=== PATIENT | female | born 1975 | race Caucasian/White ===

== ENCOUNTER → 2018-03-14 07:54 | Outpatient (CLI) | payer BC, SELFPAY ==
--- NOTE | 2018-03-14 | DI.RAD.S_ITS ---
PROCEDURE: XR HIP W PEL IF DONE BILAT 2V INDICATIONS: BILATERAL HIP PAIN TECHNIQUE: AP pelvis with lateral view(s) of the left and right hip(s). COMPARISON: None. FINDINGS: Bones: No fractures or dislocations. Pelvic ring appears intact. No suspicious bony lesions. Bilateral mild hip joint degeneration. Lower lumbar spine disc degeneration. There is a borderline right and slightly abnormal left center edge angles raising the possibility of mild bilateral hip dysplasia. Suboptimal evaluation given pelvic tilt. Soft tissues: The visualized bowel gas pattern is normal. No suspicious soft tissue calcifications. IMPRESSION: Mild bilateral hip degeneration. Borderline dysplastic hip appearance, left greater than right, although the appearance could be accentuated due to pelvic tilt. Recommend clinical correlation. Dictated by: Shimon Tiwari M.D. on 03/14/2018 at 9:00 Approved by: Shimon Tiwair M.D. on 03/14/2018 at 9:07
== END ==
PROVIDERS: Visit Provider Chiropractor
DX: M25.552 Pain in left hip (principal); M25.551 Pain in right hip; M16.0 Bilateral primary osteoarthritis of hip
CPT/HCPCS: 73521

== ENCOUNTER → 2018-12-02 08:37 | Outpatient (CLI) | payer OTHER, SELFPAY ==
--- NOTE | 2018-12-02 | DI.CT.S_ITS ---
PROCEDURE: CT ABDOMEN PELVIS W CON INDICATIONS: ABDOMINAL BLOATING TECHNIQUE: After the administration of oral and intravenous contrast, 5 mm thick sections acquired from the diaphragms to the symphysis. 5 mm thick coronal and sagittal reformats were performed. For radiation dose reduction, the following was used: automated exposure control, adjustment of mA and/or kV according to patient size. COMPARISON: None. FINDINGS: Image quality: Excellent. ABDOMEN: Lung bases: Lung bases are clear. Heart size is normal. Solid organs: Liver is normal in size and enhancement. Gallbladder appears normal. Biliary system is non-dilated. Pancreas enhances normally. Spleen is normal in size and enhancement. No adrenal nodules. Kidneys are normal in size and enhancement, without hydronephrosis. Peritoneum and bowel: Stomach, small bowel, and colon loops are normal in caliber and wall thickness. No free fluid or air. There is generalize colonic obstipation through the abdomen and pelvis, on the right in the left. Nodes and vessels: No retroperitoneal or mesenteric adenopathy. Aorta and inferior vena cava are normal in caliber. Miscellaneous: No ventral hernias. PELVIS: Genitourinary: Bladder wall thickness is normal. Miscellaneous: No inguinal hernias or adenopathy. Bones: No suspicious bony lesions. No vertebral body compression fractures. IMPRESSION: Generalize colonic obstipation, no ascites or peritoneal masses are found. Dictated by: Rocky Che M.D. on 12/02/2018 at 14:11 Approved by: Rocky Che M.D. on 12/02/2018 at 14:13
== END ==
PROVIDERS: PCP Nurse Practitioner Family; Visit Provider Nurse Practitioner Family
DX: R14.0 Abdominal distension (gaseous) (principal); K59.09 Other constipation
CPT/HCPCS: 74177; Q9967

== ENCOUNTER 2022-05-17 11:28 | Day surgery (SDC) | payer OTHER, SELFPAY ==
[2022-05-17] VITALS (7 sets, daily range): BP systolic 112–130; BP diastolic 66–83; PULSE 77–103; RESP 16–17; TEMP 36.3–36.4; O2SAT 97–100; BMI 22.6
--- NOTE | 2022-05-17 | PATH_ITS ---
[facility] Accession Number: [id number] . 01 Material submitted: . PART A: stomach - ANTRUM NODULE PART B: gastrointestinal site - GASTRIC POLYPS . 01 Diagnosis: A. Stomach, Nodule, Biopsy: Reactive gastropathy with intestinal metaplasia. Negative for Helicobacter by immunohistochemistry. Negative for dysplasia and malignancy. . B. Stomach, Polyps, Biopsies: Fundic gland polyps. No evidence of Helicobacter organisms on H/E stain. Negative for intestinal metaplasia. Negative for dysplasia and malignancy. MRV 05/22/2022 1538 Local . 01 Electronically signed: . Ana Montoya MD, Pathologist NPI- [id number] . 01 Gross description: . Part A: ANTRUM NODULE: Received in formalin is 1 fragment(s) of duran, soft tissue measuring 0.3 x 0.2 x 0.1 cm submitted entirely in 1 cassette(s) Part B: GASTRIC POLYPS: Received in formalin are multiple fragment(s) of duran, soft tissue measuring 2.0 x 0.3 x 0.1 cm in aggregate submitted entirely in 1 cassette(s) /CPE 05/18/2022 0628 Local . 01 Microscopic: . A. An immunohistochemical stain was performed to evaluate for Helicobacter organisms and is negative. The control stain showed appropriate reactivity. . * This test was developed and its performance characteristics determined by [employer]. It has not been cleared or approved by the U.S. Food and Drug Administration. The FDA has determined that such clearance or approval is not necessary. This test is used for clinical purposes. It should not be regarded as investigational or for research. . 01 Pathologist provided ICD-10: R14.0, R10.13, K31.7 . 01 CPT . 476212, 109970, D52631 Specimen Comment: A courtesy copy of this report has been sent to [phone], [phone] Specimen Comment: [id number] [facility]formed at: [facility] [address] [place] [id number] MD Yogesh Fox MD Phone: [phone]
--- NOTE | 2022-05-17 12:22 | PM.HP.1 ---
History of Present Illness History of Present Illness Date Patient Seen: 05/17/22 Time Patient Seen: 12:22 Chief complaint: SDC Narrative: I reviewed the recent office note. She cancel the colonoscopy over fears of low blood pressure with the prep. She is seeking evaluation for left upper quadrant pain and new symptoms of reflux. She is a history of fairly heavy NSAID use over the years. None recently. Meds Home Medications and Allergies Home Medications Medication Instructions Recorded Confirmed Type Flonase 50 mcg intranasal BID 05/17/22 05/17/22 History Zyrtec 10 mg 05/17/22 History alpha lipoic acid 200 mg PO DAILY 05/17/22 05/17/22 History amitriptyline 30 mg DAILY 05/17/22 05/17/22 History azelastine 137 mcg DAILY 05/17/22 05/17/22 History baclofen 10 mg PO DAILY 05/17/22 05/17/22 History magnesium 200 mg PO DAILY 05/17/22 05/17/22 History sodium hyaluronate 120 mg PO DAILY 05/17/22 05/17/22 History Allergies Allergy/AdvReac Type Severity Reaction Status Date / Time cimetidine [From Tagamet] AdvReac Verified 05/17/22 12:02 famotidine AdvReac Verified 05/17/22 12:02 omeprazole AdvReac Verified 05/17/22 12:02 Review of Systems Review of Systems ROS: Yes All systems reviewed with the patient and are negative except as otherwise documented Exam Const General: cooperative HENMT Head: normal to inspection Eyes General: appearance normal, both eyes and all related structures Neck Neck: normal visual inspection Chest Chest: normal inspection of the chest Resp Effort & Inspection: normal respiratory effort Cardio Rate: regular rate GI Inspection: normal to inspection Skin General: no rashes or lesions noted Neuro General: patient alert and patient awake Extrem General: normal to inspection and no pedal edema Psych Appearance: grossly normal Assessment & Plan Assessment & Plan narrative: 46-year-old female with left upper quadrant pain refractory reflux symptoms. EGD is pursued today. Time Spent With Patient Critical Care time: I spent a total of [] minutes of critical care time on this patient's care today; this time is exclusive of procedural time.
[2022-05-17] MEDS: LACTATED RINGERS 1,000 ML 42 ML IV (12:26)
--- NOTE | 2022-05-17 12:57 | PM.PREOP ---
Pre-operative Note COVID-19 COVID-19 status: Negative Result date/Date tested (Pos, Neg/Pending): 05/16/22 Criteria for continued procedure: Possibility delay results in more complex future surgery or treatment Interval Note History & Physical reviewed/Exam performed by Physician: Yes Changes to H&P: No ASA Class (for procedural sedation): II
--- NOTE | 2022-05-17 13:32 | PM.OP.EGD ---
Operative Date/Time/Diagnoses Date of procedure: 05/17/22 Time of procedure: 13:32 Pre-op diagnosis: Left upper quadrant pain reflux Post-op diagnosis: same Procedure & Clinicians Study performed: EGD with biopsies Same procedure as scheduled: Yes Indications: Left upper quadrant pain reflux Surgeon: Dante Guillermo Procedure Notes SCOAP/Timeout: Done Procedure in detail: After the risks and benefits were explained, written and verbal informed consent was obtained. The patient was brought into the procedure room and placed into the left lateral decubitus position. Please see anesthesia notes for sedation details. The scope was introduced into the mouth through the bite block and advanced under direct visualization to the 2nd portion of the duodenum. The scope was slowly withdrawn carefully examining the mucosa for any defects or lesions. Retroflexed views were accomplished in the stomach. The stomach was decompressed, the scope was then removed from the patient who tolerated the procedure well. Sedation minutes: 13 Complications: none Impression: 1. Duodenum: No significant pathology identified from the bulb through to the 2nd portion. 2. Stomach: No ulcers. No gastric outlet obstruction. There was a small subtle mucosal nodule in the pre-pyloric region of the antrum and this was addressed with cold forceps for histopathology. There were numerous sessile small polyps seen throughout the body and fundus. Several of these were biopsied for histopathologic analysis. Retroflexed views of the LES were otherwise unremarkable. 3. Esophagus: The squamocolumnar junction correlated with the top of the gastric folds. GE junction was at 40 cm from the incisors. No evidence of any esophagitis no strictures no mass lesions. No pathology appreciated throughout the esophagus. Endoscopic diagnosis 1. Mild gastropathy with pre-pyloric nodule. 2. Small gastric polyps Post-procedure Plan for aftercare: 1. Await histopathology. 2. Try to avoid NSAIDs 3 if Helicobacter is identified, it will need to be eradicated with standard triple therapy recognizing the patient has significant allergies that may make therapy more challenging.. Disposition: PACU
== END 2022-05-17 14:30 | disposition home or self-care (01) ==
PROVIDERS: PCP Nurse Practitioner Family; Referring Provider Internal Medicine Gastroenterology; Visit Provider Internal Medicine Gastroenterology
PROC: 0DJ08ZZ Inspection of Upper Intestinal Tract, Via Natural or Artificial Opening Endoscopic (ICD-10-PCS; CPT 43235; principal; 2022-05-17 13:30)
DX: R10.12 Left upper quadrant pain (principal); K31.9 Disease of stomach and duodenum, unspecified; K31.7 Polyp of stomach and duodenum
CPT/HCPCS: 43239; J2704; J3010

== ENCOUNTER 2023-02-21 07:36 | Day surgery (SDC) | payer OTHER, SELFPAY ==
--- NOTE | 2023-02-21 | PATH_ITS ---
[facility] Accession Number: [id number] No. of containers..06 Tissue . 01 Material submitted: . PART A: stomach - ANTRUM PART B: stomach - INCISURA PART C: stomach - ANTRAL NODULE PART D: stomach - GREATER CURVATURE PART E: stomach - LESS CURVATURE PART F: stomach - FUNDUS . 01 Diagnosis: A. STOMACH, ANTRUM, BIOPSY: ANTRAL GASTRIC MUCOSA WITH MILD CHRONIC AND FOCAL ACTIVE GASTRITIS, AND REACTIVE GASTROPATHY. NO H. PYLORI LIKE ORGANISMS IDENTIFIED (BY THE H/E AND IMMUNOHISTOCHEMICAL STAINED SLIDE SECTIONS). NO INTESTINAL METAPLASIA, DYSPLASIA OR MALIGNANCY IDENTIFIED. SEE COMMENT: -- B. STOMACH, INCISURA, BIOPSY: GASTRIC MUCOSA WITH MILD CHRONIC GASTRITIS. NO H. PYLORI LIKE ORGANISMS IDENTIFIED (BY THE H/E-STAINED SLIDE SECTIONS). NO INTESTINAL METAPLASIA, DYSPLASIA OR MALIGNANCY IDENTIFIED. -- C. STOMACH, ANTRAL NODULE, BIOPSY: ANTRAL GASTRIC MUCOSA WITH MILD FOCAL CHRONIC GASTRITIS, AND MILD REACTIVE GASTROPATHY. NO H. PYLORI LIKE ORGANISMS IDENTIFIED (BY THE H/E AND IMMUNOHISTOCHEMICAL STAINED SLIDE SECTIONS). NO INTESTINAL METAPLASIA, DYSPLASIA OR MALIGNANCY IDENTIFIED. SEE COMMENT: -- D. STOMACH, GREATER CURVATURE, BIOPSY: OXYNTIC GASTRIC MUCOSA WITH NO HISTOLOGIC ABNORMALITIES. NO H. PYLORI LIKE ORGANISMS IDENTIFIED (ON THE H/E-STAINED SECTIONS). NEGATIVE FOR GASTRITIS, INTESTINAL METAPLASIA, DYSPLASIA OR MALIGNANCY. -- E. STOMACH, LESSER CURVATURE, BIOPSY: OXYNTIC GASTRIC MUCOSA WITH MILD CHRONIC GASTRITIS. NO H. PYLORI LIKE ORGANISMS IDENTIFIED (ON THE H/E-STAINED SECTIONS). NEGATIVE FOR INTESTINAL METAPLASIA, DYSPLASIA OR MALIGNANCY. -- F. STOMACH, FUNDUS, BIOPSY: OXYNTIC GASTRIC MUCOSA WITH MILD CHRONIC GASTRITIS. NO H. PYLORI LIKE ORGANISMS IDENTIFIED (BY THE H/E AND IMMUNOHISTOCHEMICAL STAINED SLIDE SECTIONS). NO INTESTINAL METAPLASIA, DYSPLASIA OR MALIGNANCY IDENTIFIED. SEE COMMENT: --- COMMENT: H. PYLORI IMMUNOHISTOCHEMICAL STAIN WAS PERFORMED ON PARTS A, C, AND F AND ARE NEGATIVE. TECHNICAL NOTE: THE IMMUNOHISTOCHEMICAL STAINS REPORTED WERE PERFORMED AT [facility] ([address], [facility] [address]). THEY WERE DEVELOPED AND THEIR PERFORMANCE CHARACTERISTICS DETERMINED BY [employer] THEY HAVE NOT BEEN CLEARED OR APPROVED BY THE [place] FOOD AND DRUG ADMINISTRATION, ALTHOUGH SUCH APPROVAL IS NOT REQUIRED FOR ANALYTE-SPECIFIC REAGENTS OF THIS TYPE. . TXN 02/26/2023 1353 Local . 01 Electronically signed: . Liam Aj MD, Pathologist NPI- [id number] . 01 Gross description: . Part A: ANTRUM: Received in formalin is 2 fragment(s) of duran, soft tissue measuring 0.3 x 0.3 x 0.2 cm to 0.3 x 0.2 x 0.2 cm submitted entirely in 1 cassette(s) Part B: INCISURA: Received in formalin is 2 fragment(s) of duran, soft tissue measuring 0.3 x 0.3 x 0.2 cm to 0.3 x 0.2 x 0.2 cm submitted entirely in 1 cassette(s) Part C: ANTRAL NODULE: Received in formalin is 1 fragment(s) of duran, soft tissue measuring 0.5 x 0.3 x 0.2 cm submitted entirely in 1 cassette(s) Part D: GREATER CURVATURE: Received in formalin is 2 fragment(s) of duran, soft tissue measuring 0.4 x 0.2 x 0.1 cm to 0.2 x 0.2 x 0.1 cm submitted entirely in 1 cassette(s) Part E: LESS CURVATURE: Received in formalin is 2 fragment(s) of duran, soft tissue measuring 0.4 x 0.2 x 0.1 cm to 0.2 x 0.1 x 0.1 cm submitted entirely in 1 cassette(s) Part F: FUNDUS: Received in formalin is 1 fragment(s) of duran, soft tissue measuring 0.4 x 0.2 x 0.2 cm submitted entirely in 1 cassette(s) /AAY 02/22/2023 0607 Local . 01 Pathologist provided ICD-10: K31.89 . 01 CPT . 267160, 108890, 075975, 090717, 784922, 154951, X66099, D95258, X39198 Performed at: 01 [facility] [address] [place] [address], [place], [place] [id number] MD Yogesh Fox MD Phone: [phone]
[2023-02-21 07:46] VITALS: BP 114/69; PULSE 99; RESP 16; TEMP 36.4; O2SAT 100; BMI 22.2
[2023-02-21] MEDS: LACTATED RINGERS 1,000 ML 150 ML IV (08:08)
--- NOTE | 2023-02-21 08:39 | PM.OP.EGD ---
Operative Date/Time/Diagnoses Date of procedure: 02/21/23 Pre-op diagnosis: See indication and findings Procedure & Clinicians Study performed: EGD with biopsy Indications: History of gastric intestinal metaplasia Surgeon: Alexia Chris Procedure Notes Procedure in detail: After informed consent was obtained the patient was placed in left lateral decubitus position. The video upper scope was placed into the oropharynx and with the patient's help swelled into the esophagus. The esophagus stomach and duodenum were carefully examined. On withdrawal retroflexed view the GE junction was performed. Scope was removed. The patient tolerated procedure well. Blood loss none Complications none Sedation mac Findings 1. No clear-cut discernible line of demarcation for gastric intestinal metaplasia. There was however a slightly raised area in the antrum on the posterior wall measuring approximately 6 mm. This was biopsied and placed in a bottle labeled ?antral nodule?. Otherwise, 2 biopsies were taken in the fundus/hi body, greater curvature, lesser curvature, incisura, and antrum. 2. Normal esophagus and normal duodenum Will be in touch regarding biopsies. In general the patient has no risk factors for gastric cancer and therefore biopsy results will be gibbs to determining whether to have her undergo surveillance routinely.
--- NOTE | 2023-02-21 08:41 | PM.HP.1 ---
History of Present Illness History of Present Illness Date Patient Seen: 02/21/23 Chief complaint: SDC Narrative: History of gastric intestinal metaplasia. Need for follow-up. PFSH Social History household members: spouse Smoking Status: Never smoker alcohol intake: never Meds Home Medications and Allergies Home Medications Medication Instructions Recorded Confirmed Type Flonase 50 mcg intranasal BID 05/17/22 02/21/23 History Zyrtec 10 mg 05/17/22 History amitriptyline 30 mg DAILY 05/17/22 02/21/23 History azelastine 137 mcg DAILY 05/17/22 02/21/23 History baclofen 10 mg PO DAILY 05/17/22 02/21/23 History magnesium 200 mg PO DAILY 05/17/22 02/21/23 History naltrexone 1.5 mg capsule mg PO 1XD Pain 02/21/23 History Allergies Allergy/AdvReac Type Severity Reaction Status Date / Time shellfish derived Allergy Severe Hives Verified 02/21/23 08:09 cimetidine [From Tagamet] AdvReac Verified 05/17/22 12:02 famotidine AdvReac Verified 05/17/22 12:02 omeprazole AdvReac Verified 05/17/22 12:02 Exam Vital Signs (past 8 hours): - 02/21/23 07:46 Temperature 97.5 F L Pulse Rate 99 H Respiratory Rate 16 Blood Pressure 114/69 Pulse Oximetry 100 Oxygen Delivery Method Room Air Oxygen Delivery Method Room Air Narrative Exam Narrative: Oropharynx free of lesions Chest clear to auscultation percussion Cardiac exam reveals no S3 or murmur Assessment & Plan Assessment & Plan narrative: History of gastric intestinal metaplasia need for follow-up biopsies. Risks, benefits, alternatives have been explained.
[2023-02-21 09:00] VITALS: BP 116/68; PULSE 104; RESP 20; TEMP 36.4; O2SAT 100
[2023-02-21 09:05] VITALS: BP 114/62; PULSE 86; RESP 17; TEMP 36.4; O2SAT 98
[2023-02-21 09:11] VITALS: PULSE 86; RESP 11; TEMP 36.4; O2SAT 99
[2023-02-21 09:12] VITALS: BP 119/74
[2023-02-21 09:15] VITALS: BP 118/75; PULSE 85; RESP 15; TEMP 36.4; O2SAT 99
== END 2023-02-21 09:34 | disposition home or self-care (01) ==
PROVIDERS: PCP Family Medicine; Referring Provider Internal Medicine Gastroenterology; Visit Provider Internal Medicine Gastroenterology
PROC: 0DJ08ZZ Inspection of Upper Intestinal Tract, Via Natural or Artificial Opening Endoscopic (ICD-10-PCS; CPT 43235; principal; 2023-02-21 08:30)
DX: K29.50 Unspecified chronic gastritis without bleeding (principal); K31.9 Disease of stomach and duodenum, unspecified
CPT/HCPCS: 43239